=== PATIENT | male | born 1965 | race Caucasian/White ===

== ENCOUNTER 2021-02-15 12:23 | Emergency (ER) | payer BC ==
[2021-02-15 13:11] LABS: CHLORIDE,CL 102 mEq/L (98-106); SODIUM,NA 143 mEq/L (136-145)
--- NOTE | 2021-02-15 13:12 | EDM.PDOC ---
ED HPI GENERAL MEDICAL PROBLEM - General Chief Complaint: Respiratory Problem Stated Complaint: shortness of breath Time Seen by Provider: 02/15/21 12:25 Source of Information: Reports: Patient, EMS History Limitations: Reports: No Limitations - History of Present Illness INITIAL COMMENTS - FREE TEXT/NARRATIVE: Samuel is a 56 year old male who presents to ER per EMS with sudden onset shortness of breath. Did have chest discomfort and had taken one nitro at home. EMS states oxygen sats were in the 70s on arrival to the home. Was anxious. Oxygen sats did improve to the 90s with 15 liters by [facility]. Patient admits has been dealing with sinus symptoms, sore throat and headache since last Tuesday. Was seen in [facility] on Tuesday, placed on [employer]. Was not covid tested. Has had both of his vaccines. Today, notes shortness of breath came on quite sudden. Has had dry cough but that has been unchanged over the last few days. No edema. No nausea/vomiting. No abdominal pain. Has not lost his taste or smell. Onset: Today, Sudden Duration: Minutes:, Constant Location: Reports: Head, Chest Quality: Reports: Ache Severity: Mild Associated Symptoms: Reports: Chest Pain, Cough, Headaches, Malaise, Shortness of Breath. Denies: Confusion, cough w sputum, Loss of Appetite, Nausea/Vomiting Treatments TIRE ASSEMBLER: Reports: Other Medication(s) Other Treatments TIRE ASSEMBLER: cough meds - Related Data Allergies Allergy/AdvReac Type Severity Reaction Status Date / Time No Known Allergies Allergy Verified 02/15/21 12:37 Home Meds: Home Meds Omeprazole 1 cap PO DAILY 04/23/15 [History] Albuterol/Ipratropium [DuoNeb 3.0-0.5 MG/3 ML] 3 ml INH Q4H #28 ml 02/15/21 [Rx] Benzonatate [Tessalon Perles] 100 mg PO TID 02/15/21 [History] predniSONE 20 mg PO DAILY #8 tab 02/15/21 [Rx] Past Medical History HEENT History: Reports: Impaired Vision Other HEENT History: WEARS CORRECTIVE LENSES Cardiovascular History: Reports: None Respiratory History: Reports: None Gastrointestinal History: Reports: GERD, Other (See Below) Other Gastrointestinal History: EOSINOPHILIC ESOPHAGITIS Genitourinary History: Reports: None Musculoskeletal History: Reports: None Neurological History: Reports: None Psychiatric History: Reports: Learning Disability Endocrine/Metabolic History: Reports: Obesity/BMI 30+ Hematologic History: Reports: None Immunologic History: Reports: None Oncologic (Cancer) History: Reports: None Dermatologic History: Reports: None - Past Surgical History Head Surgeries/Procedures: Reports: None HEENT Surgical History: Reports: None Cardiovascular Surgical History: Reports: None Respiratory Surgical History: Reports: None GI Surgical History: Reports: EGD Male Surgical History: Reports: None Endocrine Surgical History: Reports: None Neurological Surgical History: Reports: None Musculoskeletal Surgical History: Reports: None Oncologic Surgical History: Reports: None Dermatological Surgical History: Reports: None Social & Family History - Family History Family Medical History: No Pertinent Family History - Tobacco Use Tobacco Use Status *Q: Never Tobacco User Second Hand Smoke Exposure: No - Caffeine Use Caffeine Use: Reports: None - Recreational Drug Use Recreational Drug Use: No - Living Situation & Occupation Living situation: Reports: , with Family ED ROS GENERAL - Review of Systems Review Of Systems: See Below Constitutional: Reports: Chills, Malaise, Weakness, Fatigue, Decreased Appetite. Denies: Fever HEENT: Reports: Rhinitis, Sinus Problem, Throat Pain. Denies: Ear Pain, Vertigo Respiratory: Reports: Shortness of Breath, Wheezing, Cough Cardiovascular: Denies: Chest Pain, Edema, Lightheadedness Endocrine: Reports: Fatigue GI/Abdominal: Denies: Abdominal Pain, Constipation, Diarrhea, Nausea, Vomiting : Reports: No Symptoms Musculoskeletal: Reports: No Symptoms Skin: Reports: No Symptoms Neurological: Reports: Headache, Weakness ED EXAM, GENERAL - Physical Exam Exam: See Below Exam Limited By: No Limitations General Appearance: Alert, WD/WN, Mild Distress Ears: Normal External Exam, Normal TMs Nose: Normal Inspection, Normal Mucosa, Nasal Drainage Throat/Mouth: Normal Inspection, Normal Oropharynx Head: Normocephalic Neck: Normal Inspection, Supple, Non-Tender Respiratory/Chest: Decreased Breath Sounds, Wheezing Cardiovascular: Regular Rate, Rhythm, No Edema GI/Abdominal: Normal Bowel Sounds, Soft, Non-Tender Extremities: Normal Inspection, No Pedal Edema Neurological: Alert, Oriented Skin Exam: Warm, Dry Course - Vital Signs Last Recorded V/S: Last Vital Signs Temp 96.6 F L 02/15/21 12:35 Pulse 81 02/15/21 14:05 Resp 18 02/15/21 14:05 BP 139/64 02/15/21 14:05 Pulse Ox 96 02/15/21 14:05 - Orders/Labs/Meds Orders: Active Orders 24 hr Category Date Time Status RT Aerosol Therapy [RC] ASDIRECTED Care 02/15/21 13:55 Ordered Ang Chest [CT] Stat Exams 02/15/21 13:15 Ordered Chest 1V Frontal [CR] Routine Exams 02/15/21 Taken Labs: Laboratory Tests 02/15/21 02/15/21 02/15/21 Range/Units 12:49 12:49 12:49 WBC 8.3 (4.0-11.0) 10^3/uL RBC 5.38 (4.50-6.00) x10^6/uL Hgb 14.0 (14.0-18.0) g/dL Hct 44.0 (42.0-52.0) % MCV 81.8 L (83.0-97.0) fL MCH 26.0 L (27.0-32.0) pg MCHC 31.8 L (32.0-36.0) g/dL RDW Coeff of Esthela 12.9 (11.0-15.0) % Plt Count 329 (150-400) 10^3/uL Immature Gran % (Auto) 0.5 (0.0-4.9) % Neut % (Auto) 60.8 (41-71) % Lymph % (Auto) 27.8 (24-44) % [place] % (Auto) 6.4 (0-10) % Eos % (Auto) 4.0 (0-6) % Baso % (Auto) 0.5 (0-1) % Neut # (Auto) 5.02 (1.80-8.00) x10^3/uL Lymph # (Auto) 2.30 (0.60-5.00) 10^3/uL [place] # (Auto) 0.53 (0.00-1.50) 10^3/uL Eos # (Auto) 0.33 (0.00-1.50) 10^3/uL Baso # (Auto) 0.04 (0.00-0.50) 10^3/uL Immature Gran # (Auto) 0.04 (0.00-0.49) 10^3/uL D-Dimer, Quantitative 0.56 H (0.00-0.50) Sodium (136-145) mEq/L Potassium (3.5-5.0) mEq/L Chloride (98-106) mEq/L Carbon Dioxide (21-32) mmol/L BUN (7-18) mg/dL Creatinine (0.7-1.3) mg/dL Est Cr Clr Drug Dosing mL/min Estimated GFR (MDRD) (>=60) mL/min Glucose (75-99) mg/dL Calcium (8.4-10.1) mg/dL Magnesium (1.8-2.4) mg/dL Total Bilirubin (0.0-1.0) mg/dL AST (15-37) U/L ALT (12-78) U/L Alkaline Phosphatase (46-116) U/L Lactate Dehydrogenase (100-190) U/L Creatine Kinase (35-232) U/L C-Reactive Protein (0.2-0.8) mg/dL NT-Pro-B Natriuret Pep (0-1000) pg/mL Total Protein (6.4-8.2) g/dL Albumin (3.4-5.0) g/dL Influenza Type A RNA (NEGATIVE) RSV RNA (INAAT) (NEGATIVE) Influenza Type B RNA (NEGATIVE) SARS-CoV-2 RNA (BREN) (NEGATIVE) SARS CoV-2 RNA Rapid BREN Negative (NEGATIVE) 02/15/21 02/15/21 Range/Units 12:49 13:23 WBC (4.0-11.0) 10^3/uL RBC (4.50-6.00) x10^6/uL Hgb (14.0-18.0) g/dL Hct (42.0-52.0) % MCV (83.0-97.0) fL MCH (27.0-32.0) pg MCHC (32.0-36.0) g/dL RDW Coeff of Esthela (11.0-15.0) % Plt Count (150-400) 10^3/uL Immature Gran % (Auto) (0.0-4.9) % Neut % (Auto) (41-71) % Lymph % (Auto) (24-44) % [place] % (Auto) (0-10) % Eos % (Auto) (0-6) % Baso % (Auto) (0-1) % Neut # (Auto) (1.80-8.00) x10^3/uL Lymph # (Auto) (0.60-5.00) 10^3/uL [place] # (Auto) (0.00-1.50) 10^3/uL Eos # (Auto) (0.00-1.50) 10^3/uL Baso # (Auto) (0.00-0.50) 10^3/uL Immature Gran # (Auto) (0.00-0.49) 10^3/uL D-Dimer, Quantitative (0.00-0.50) Sodium 143 (136-145) mEq/L Potassium 4.2 (3.5-5.0) mEq/L Chloride 102 (98-106) mEq/L Carbon Dioxide 31 (21-32) mmol/L BUN 11 (7-18) mg/dL Creatinine 1.0 (0.7-1.3) mg/dL Est Cr Clr Drug Dosing 87.85 mL/min Estimated GFR (MDRD) > 60 (>=60) mL/min Glucose 129 H D (75-99) mg/dL Calcium 9.1 (8.4-10.1) mg/dL Magnesium 1.9 (1.8-2.4) mg/dL Total Bilirubin 0.3 (0.0-1.0) mg/dL AST 21 (15-37) U/L ALT 40 (12-78) U/L Alkaline Phosphatase 120 H (46-116) U/L Lactate Dehydrogenase 166 (100-190) U/L Creatine Kinase 75 (35-232) U/L C-Reactive Protein 0.2 (0.2-0.8) mg/dL NT-Pro-B Natriuret Pep 2 (0-1000) pg/mL Total Protein 7.9 (6.4-8.2) g/dL Albumin 3.5 (3.4-5.0) g/dL Influenza Type A RNA Negative (NEGATIVE) RSV RNA (INAAT) Negative (NEGATIVE) Influenza Type B RNA Negative (NEGATIVE) SARS-CoV-2 RNA (BREN) Negative (NEGATIVE) SARS CoV-2 RNA Rapid BREN (NEGATIVE) Meds: Medications Discontinued Medications Generic Name Dose Route Start Last Admin Trade Name Freq PRN Reason Stop Dose Admin Albuterol/Ipratropium 3 ml 02/15/21 13:55 02/15/21 14:05 Albuterol/Ipratropium 3.0-0.5 Mg/3 Ml Neb Soln NEB 02/15/21 13:56 3 ml ONETIME ONE Administration Iopamidol 100 ml 02/15/21 13:46 02/15/21 13:46 Iopamidol 755 Mg/Ml 100 Ml Bottle IVPUSH 02/15/21 13:47 100 ml ONETIME ONE Administration - Re-Assessments/Exams Free Text/Narrative Re-Assessment/Exam: 02/15/21 14:04 Initially on 6 liters of oxygen on arrival. Does admit feeling very anxious when ambulance arrived due to shortness of breath. Now down to 2 liters of oxygen and sats 96%. Covid, RSV and Influenza all negative, will try nebulizer treatment now for wheezing. Other labs unremarkable. D-Dimer is slightly elevated, will obtain CTA. 02/15/21 14:25 CTA of chest is negative. Resting comfortably. Does have occasional cough. Neb given, oxygen sat now 92% on room air. Patient does feel the nebulizer treatment helped his breathing. Does have a machine at home with a few neb treatments, will reorder to pharmacy tomorrow. Departure - Departure Time of Disposition: 14:31 Disposition: Home, Self-Care 01 Condition: Good Clinical Impression: Bronchitis - Discharge Information *PRESCRIPTION DRUG MONITORING PROGRAM REVIEWED*: No *COPY OF PRESCRIPTION DRUG MONITORING REPORT IN PATIENT JOSE DANIEL: No Instructions: Acute Bronchitis, Adult Referrals: Devante Vogt PA-C [Primary Care Provider] - Forms: ED Department Discharge Additional Instructions: 1. Push fluids 2. Tylenol as needed for headache/fever 3. Prednisone 40 mg daily for 5 days (first dose given today) 4. Promethazine with codeine elixir 1-2 tsp every 4-6 hours as needed 5. DuoNeb every 4 hours as needed for wheezing/shortness of breath 6. Follow up if any persisting concerns. Sepsis Event Note (ED) - Evaluation Sepsis Screening Result: No Definite Risk - Focused Exam Vital Signs: Vital Signs Temp Pulse Resp BP Pulse Ox 02/15/21 14:05 81 18 139/64 96 02/15/21 12:35 96.6 F L 101 H 20 145/83 H 87 L - My Orders Last 24 Hours: My Active Orders 02/15/21 Chest 1V Frontal [CR] Routine 02/15/21 13:15 Ang Chest [CT] Stat 02/15/21 13:55 RT Aerosol Therapy [RC] ASDIRECTED - Assessment/Plan Last 24 Hours: My Active Orders 02/15/21 Chest 1V Frontal [CR] Routine 02/15/21 13:15 Ang Chest [CT] Stat 02/15/21 13:55 RT Aerosol Therapy [RC] ASDIRECTED
[2021-02-15] MEDS ORDERED: Iopamidol 612 MG/ML 100 ML Bottle IVPUSH ONE (13:45)
[2021-02-15] MEDS ORDERED: Iopamidol 755 Mg/ML 100 ML Bottle IVPUSH ONE (13:46)
[2021-02-15] MEDS ORDERED: Albuterol/Ipratropium 3.0-0.5 MG/3 ML Neb Soln NEB ONE (13:55)
[2021-02-15 13:58] LABS: CORONAVIRUS COVID-19 NAA NEGATIVE (NEGATIVE); RESPIRATORY SYNCYTIAL VIR NAA NEGATIVE (NEGATIVE)
[2021-02-15 14:05] VITALS: BP 139/64
[2021-02-15] MEDS ORDERED: Take Home: Codeine/Promethazine 10-6.25 MG/5 ML Syrup 5 ML, 2 Cup Pack PO ONE (14:26)
[2021-02-15] MEDS ORDERED: predniSONE 20 MG Tab PO STA (14:32)
[2021-02-15 15:07] VITALS: PULSE 79
== END 2021-02-15 15:07 | disposition home or self-care (01) ==
LOC: CC.ED 12:23
DX: J40 Bronchitis, not specified as acute or chronic (principal); K21.9 Gastro-esophageal reflux disease without esophagitis; E66.9 Obesity, unspecified; Z68.36 Body mass index [BMI] 36.0-36.9, adult; Z79.899 Other long term (current) drug therapy; Z20.822 Contact with and (suspected) exposure to COVID-19
CPT/HCPCS: 0241U; 36415; 71045; 71275; 80053; 82550; 83615; 83735; 83880; 85025; 85379; 86140; 93005; 99285-25; A9270-GY; J7512; J7620-GY; Q9967; U0002

== ENCOUNTER 2022-01-06 17:23 | Observation (INO) | payer BC ==
[2022-01-06] MEDS ORDERED: Sodium Chloride 0.9% 10 ML Syringe FLUSH PRN (17:34)
[2022-01-06] MEDS ORDERED: Iopamidol 755 Mg/ML 100 ML Bottle IVPUSH ONE (18:47)
[2022-01-06] MEDS ORDERED: Enoxaparin 100 MG/1 ML Syringe SUBCUT ONE (20:22)
[2022-01-06] MEDS ORDERED: Enoxaparin 100 MG/1 ML Syringe ONE (21:26)
[2022-01-06 21:40] VITALS: BP 136/75; PULSE 87
== END 2022-01-07 13:25 | disposition home or self-care (01) ==
LOC: CC.ED 17:23 → CC.ZCENSUS 19:55
PROVIDERS: ADMIT Nurse Practitioner Family; ATTEND Nurse Practitioner Family
DX: R07.9 Chest pain, unspecified (principal); R09.02 Hypoxemia; K21.9 Gastro-esophageal reflux disease without esophagitis; E66.9 Obesity, unspecified; Z68.30 Body mass index [BMI] 30.0-30.9, adult; Z20.822 Contact with and (suspected) exposure to COVID-19; Z79.82 Long term (current) use of aspirin; Z79.899 Other long term (current) drug therapy
CPT/HCPCS: 36415; 71045; 71275; 80053; 81001; 83735; 83880; 84484; 85025; 85379; 87804; 93005; 99284; 99285; U0002

== ENCOUNTER 2022-11-30 13:45 | Emergency (ER) | payer BC ==
[2022-11-30 14:01] VITALS: BP 133/78; PULSE 105
[2022-11-30 14:14] LABS: BASOPHILS ABSOLUTE AUTO 0.04 10^3/uL (0.00-0.50); BASOPHILS PERCENT AUTO 0.4 % (0-1); EOSINOPHILS ABSOLUTE AUTO 0.38 10^3/uL (0.00-1.50); EOSINOPHILS PERCENT AUTO 4.2 % (0-6); HEMATOCRIT 38.4 % (42.0-52.0); HEMOGLOBIN 12.1 g/dL (14.0-18.0); IMMATURE GRAN ABSOLUTE AUTO 0.03 10^3/uL (0.00-0.49); IMMATURE GRAN PERCENT AUTO 0.3 % (0.0-4.9); LYMPHOCYTES ABSOLUTE AUTO 2.26 10^3/uL (0.60-5.00); LYMPHOCYTES PERCENT AUTO 25.1 % (24-44); MEAN CORPUSCULAR HEMOGLOBIN 24.2 pg (27.0-32.0); MEAN CORPUSCULAR HGB CONC 31.5 g/dL (32.0-36.0); MONOCYTES ABSOLUTE AUTO 0.61 10^3/uL (0.00-1.50); MONOCYTES PERCENT AUTO 6.8 % (0-10); NEUTROPHILS ABSOLUTE AUTO 5.69 x10^3/uL (1.80-8.00); NEUTROPHILS PERCENT AUTO 63.2 % (41-71); PLATELET COUNT,PLT 522 10^3/uL (150-400); RED BLOOD CELL COUNT 4.99 x10^6/uL (4.50-6.00)
[2022-11-30 14:28] LABS: ALBUMIN 3.1 g/dL (3.4-5.0); BILIRUBIN TOTAL 0.3 mg/dL (0.0-1.0); CALCIUM 9.7 mg/dL (8.4-10.1); EST CRCL DRUG DOSING (CG) 89.46 mL/min; MAGNESIUM 1.8 mg/dL (1.8-2.4); PROTEIN TOTAL,TP 8.1 g/dL (6.4-8.2)
[2022-11-30] MEDS: Enoxaparin 100 MG/1 ML Syringe SUBCUT STA (16:06)
== END 2022-11-30 16:21 | disposition home or self-care (01) ==
LOC: CC.ED 13:45
DX: M79.661 Pain in right lower leg (principal); K21.9 Gastro-esophageal reflux disease without esophagitis; E66.9 Obesity, unspecified; Z79.82 Long term (current) use of aspirin; Z79.899 Other long term (current) drug therapy; Z68.35 Body mass index [BMI] 35.0-35.9, adult
CPT/HCPCS: 36415; 80053; 83735; 85025; 85379; 96372; 99283; 99284; J1650